=== PATIENT | female | born 1940 | race African-American/Black ===

== ENCOUNTER 2017-12-26 16:25 | Emergency (ER) | payer MEDICARE, OTHER ==
[~2017-12-26] VITALS: Ht 162.6 cm; Wt 38.0 kg
[2017-12-26] MEDS ORDERED: ipratropium/albuterol 3ml nebule NEB ONE (17:30)
[2017-12-26 18:00] LABS: BASOPHILS % (AUTO) 0 % (0-1); EOSINOPHILS # (AUTO) 0.1 X10'3 (0-0.9); EOSINOPHILS % (AUTO) 0.8 % (0-6); HEMATOCRIT 22.6 % (35.0-45.0); HEMOGLOBIN 7.2 g/dl (12.0-16.0); LYMPHOCYTES # (AUTO) 1.5 X10'3 (1.1-4.8); LYMPHOCYTES % (AUTO) 15.5 % (21-51); MEAN CORPUSCULAR HGB CONC 31.9 % (33.0-36.5); MEAN CORPUSCULAR VOLUME 75.4 FL (78-98); MEAN PLATELET VOLUME 6.7 FL (7.4-10.4); MONOCYTES # (AUTO) 0.1 X10'3 (0-0.9); MONOCYTES % (AUTO) 0.8 % (2-12); NEUTROPHILS # (AUTO) 8.3 X10'3 (1.8-7.7); NEUTROPHILS % (AUTO) 82.9 % (42-75); PLATELET COUNT 481 X10'3 (140-440); RED CELL DISTRIBUTION WIDTH 17.9 % (11.5-14.5)
[2017-12-26 18:25] LABS: ALANINE AMINOTRANSFERASE 10 U/L (12-78); ALBUMIN 1.2 G/DL (3.4-5.0); ALBUMIN/GLOBULIN RATIO 0.2 (1.1-1.5); ALKALINE PHOSPHATASE 78 IU/L (46-116); ANION GAP 6 (8-16); ANISOCYTOSIS 2+; ASPARTATE AMINO TRANSFERASE 18 U/L (10-37); BILIRUBIN,TOTAL 0.2 MG/DL (0.1-1.0); BLOOD UREA NITROGEN 24 MG/DL (7-18); BUN/CREATININE RATIO 22.6 (6.6-38.0); CALCIUM 8.9 MG/DL (8.5-10.1); CHLORIDE 102 MMOL/L (99-107); CREATININE 1.06 MG/DL (0.40-0.90); MICROCYTOSIS 2+; PLATELET ESTIMATE INCREASED; POTASSIUM 4.3 MMOL/L (3.5-5.1); SODIUM 136 MMOL/L (135-145); TOTAL CARBON DIOXIDE 28.1 MMOL/L (24-32); TOTAL CELLS COUNTED 100; TOTAL PROTEIN 8.7 G/DL (6.4-8.2); eGFR 50 ML/MIN
[2017-12-26 18:26] LABS: POIKILOCYTOSIS FEW; POLYCHROMASIA 1+; TOXIC GRANULATION 2+
[2017-12-26 18:29] LABS: GLUCOSE 92 MG/DL (70-104)
[2017-12-26] MEDS ORDERED: iohexol 300mg/ml 100ml inj. ONE (18:38)
[2017-12-26 19:00] VITALS: BP 92/68
== END 2017-12-26 20:55 | disposition left against medical advice (07) ==
LOC: ER 16:26
DX: R13.10 Dysphagia, unspecified (principal); D50.9 Iron deficiency anemia, unspecified; N28.9 Disorder of kidney and ureter, unspecified; R59.1 Generalized enlarged lymph nodes; K20.9 Esophagitis, unspecified; E05.90 Thyrotoxicosis, unspecified without thyrotoxic crisis or storm; J44.9 Chronic obstructive pulmonary disease, unspecified
CPT/HCPCS: 36415; 71045; 71260; 80053; 83880; 84439; 84443; 84484; 85025; 94640; 94760; 99285; Q9967

== ENCOUNTER 2018-01-05 19:34 | Inpatient (IN) | payer MEDICARE, OTHER ==
[~2018-01-05] VITALS: Ht 160 cm; Wt 38.6 kg
[2018-01-05] MEDS ORDERED: NO HOME MEDS (20:27)
[2018-01-05 20:36] LABS: BASOPHILS # (AUTO) 0.1 X10'3 (0-0.2); BASOPHILS % (AUTO) 0.6 % (0-1); EOSINOPHILS # (AUTO) 0.1 X10'3 (0-0.9); EOSINOPHILS % (AUTO) 1.2 % (0-6); LYMPHOCYTES # (AUTO) 2.1 X10'3 (1.1-4.8); LYMPHOCYTES % (AUTO) 19.5 % (21-51); MEAN CORPUSCULAR HEMOGLOBIN 24.4 PG (27.0-31.0); MEAN CORPUSCULAR HGB CONC 32.4 % (33.0-36.5); MEAN CORPUSCULAR VOLUME 75.4 FL (78-98); MEAN PLATELET VOLUME 6.5 FL (7.4-10.4); MONOCYTES # (AUTO) 0.6 X10'3 (0-0.9); MONOCYTES % (AUTO) 5.9 % (2-12); NEUTROPHILS # (AUTO) 7.9 X10'3 (1.8-7.7); NEUTROPHILS % (AUTO) 72.8 % (42-75); PLATELET COUNT 473 X10'3 (140-440); RED BLOOD COUNT 1.89 X10'6 (4.20-5.60); RED CELL DISTRIBUTION WIDTH 17.8 % (11.5-14.5); WHITE BLOOD COUNT 10.9 X10'3 (4.5-11.0)
[2018-01-05 20:46] LABS: HEMATOCRIT 14.3 % (35.0-45.0); HEMOGLOBIN 4.6 g/dl (12.0-16.0); INR 1.1 INR; PARTIAL THROMBOPLASTIN TIME 25 SECONDS (22-32)
[2018-01-05 20:50] LABS: ALANINE AMINOTRANSFERASE 10 U/L (12-78); ALBUMIN 1.3 G/DL (3.4-5.0); ALBUMIN/GLOBULIN RATIO 0.2 (1.1-1.5); ALKALINE PHOSPHATASE 70 IU/L (46-116); ANION GAP 6 (8-16); ASPARTATE AMINO TRANSFERASE 21 U/L (10-37); BILIRUBIN,TOTAL 0.2 MG/DL (0.1-1.0); BLOOD UREA NITROGEN 23 MG/DL (7-18); BUN/CREATININE RATIO 21.1 (6.6-38.0); CALCIUM 8.9 MG/DL (8.5-10.1); CHLORIDE 103 MMOL/L (99-107); CREATININE 1.09 MG/DL (0.40-0.90); POTASSIUM 4.3 MMOL/L (3.5-5.1); SODIUM 137 MMOL/L (135-145); TOTAL CARBON DIOXIDE 28.1 MMOL/L (24-32); TOTAL PROTEIN 8.9 G/DL (6.4-8.2); eGFR 59 ML/MIN
[2018-01-05 20:53] LABS: GLUCOSE 109 MG/DL (70-104)
[2018-01-05 21:44] LABS: ANISOCYTOSIS 2+; PLATELET ESTIMATE INCREASED; TOTAL CELLS COUNTED 100
[2018-01-05 21:45] LABS: POLYCHROMASIA FEW; ROULEAUX 2+; TOXIC GRANULATION 2+
[2018-01-05 21:46] LABS: MICROCYTOSIS 1+
[2018-01-05 21:47] LABS: HYPOCHROMASIA 1+
[2018-01-05] MEDS ORDERED: magnesium 4gm in 100ml NS 100 ML IV PRN (22:15)
[2018-01-05] MEDS ORDERED: ondansetron/PF 4mg/2ml inj IV PRN (22:15)
[2018-01-05] MEDS ORDERED: magnesium hydroxide 30ml (MOM) UD suspension PO PRN (22:15)
[2018-01-05] MEDS ORDERED: HYDROcodone/acetaminophen 5mg/325mg tablet PO PRN (22:15)
[2018-01-05] MEDS ORDERED: acetaminophen 325mg tablet PO PRN (22:15)
[2018-01-05] MEDS ORDERED: magnesium 2GM in 50ml NS 50 ML IV PRN (22:15)
[2018-01-05] MEDS ORDERED: mag hydrox/Alum hydrox/simeth 30ml oral suspension PO PRN (22:15)
[2018-01-05] MEDS ORDERED: potassium Cl 20 mEq SR tablet PO PRN ×2 (22:15)
[2018-01-05] MEDS ORDERED: potassium Cl 40MEQ/NS 500ml 500 ML IV PRN ×2 (22:15)
[2018-01-05] MEDS: normal saline 1000ml 1,000 ML IV SCH (22:46)
[2018-01-06] VITALS (18 sets, daily range): BP systolic 86–119; BP diastolic 44–64
[2018-01-06] MEDS ORDERED: pantoprazole 40MG/NS 100ML BAG 100 ML IV SCH (06:00)
[2018-01-06] MEDS: K and/or MAG REPLACEMENT MC SCH (08:00)
[2018-01-06] MEDS ORDERED: pantoprazole IV 80 MG in normal saline 100ml IV soln 100 ML IV SCH (08:00)
[2018-01-06 09:02] LABS: BASOPHILS % (AUTO) 0.5 % (0-1); EOSINOPHILS # (AUTO) 0.1 X10'3 (0-0.9); EOSINOPHILS % (AUTO) 1.5 % (0-6); HEMOGLOBIN 9.8 g/dl (12.0-16.0); LYMPHOCYTES % (AUTO) 28.3 % (21-51); MEAN CORPUSCULAR HEMOGLOBIN 25.2 PG (27.0-31.0); MEAN CORPUSCULAR HGB CONC 32.7 % (33.0-36.5); MEAN CORPUSCULAR VOLUME 76.8 FL (78-98); MEAN PLATELET VOLUME 6.6 FL (7.4-10.4); MONOCYTES # (AUTO) 0.6 X10'3 (0-0.9); NEUTROPHILS # (AUTO) 4.4 X10'3 (1.8-7.7); NEUTROPHILS % (AUTO) 61.7 % (42-75); PLATELET COUNT 352 X10'3 (140-440); RED CELL DISTRIBUTION WIDTH 17.9 % (11.5-14.5); WHITE BLOOD COUNT 7.2 X10'3 (4.5-11.0)
[2018-01-06 09:12] LABS: ALANINE AMINOTRANSFERASE 11 U/L (12-78); ALBUMIN 1.2 G/DL (3.4-5.0); ALBUMIN/GLOBULIN RATIO 0.2 (1.1-1.5); ALKALINE PHOSPHATASE 67 IU/L (46-116); ANION GAP 7 (8-16); ASPARTATE AMINO TRANSFERASE 21 U/L (10-37); BILIRUBIN,TOTAL 0.6 MG/DL (0.1-1.0); BLOOD UREA NITROGEN 20 MG/DL (7-18); BUN/CREATININE RATIO 21.7 (6.6-38.0); CALCIUM 8.8 MG/DL (8.5-10.1); CHLORIDE 104 MMOL/L (99-107); CREATININE 0.92 MG/DL (0.40-0.90); GLUCOSE 79 MG/DL (70-104); POTASSIUM 4.3 MMOL/L (3.5-5.1); SODIUM 139 MMOL/L (135-145); TOTAL CARBON DIOXIDE 28.5 MMOL/L (24-32); TOTAL PROTEIN 8.4 G/DL (6.4-8.2); eGFR 71 ML/MIN
[2018-01-06] MEDS ORDERED: LIDOcaine Viscous 15ml cup ONE (15:26)
[2018-01-06] MEDS ORDERED: MIDAZolam 5mg/5ml vial ONE (15:26)
[2018-01-06] MEDS ORDERED: fentaNYL/PF 50MCG/1 ML 2ML syringe ONE (15:26)
[2018-01-06] MEDS: normal saline 1000ml 1,000 ML IV SCH (15:27)
[2018-01-06] MEDS ORDERED: normal saline 1000ml 1,000 ML IV SCH (15:28)
[2018-01-06] MEDS ORDERED: simethicone 40mg/0.6ml oral drops 30ml MC ONE (15:30)
[2018-01-06] MEDS ORDERED: LIDOcaine Viscous 15ml cup PO ONE (15:30)
[2018-01-06] MEDS ORDERED: MIDAZolam 5mg/5ml vial IV PRN (15:30)
[2018-01-06] MEDS ORDERED: fentaNYL/PF 50MCG/1 ML 2ML syringe IV PRN (15:30)
[2018-01-06] MEDS: pantoprazole 40MG/NS 100ML BAG 100 ML IV SCH (16:00)
[2018-01-06] MEDS: sucralfate 1gm/10ml UD suspension PO SCH (21:15)
[2018-01-07] MEDS: pantoprazole 40MG/NS 100ML BAG 100 ML IV SCH ×2 (01:00→05:54)
[2018-01-07 03:00] VITALS: BP 120/57
[2018-01-07 06:13] LABS: ALANINE AMINOTRANSFERASE 11 U/L (12-78); ALBUMIN 1.1 G/DL (3.4-5.0); ALBUMIN/GLOBULIN RATIO 0.2 (1.1-1.5); ALKALINE PHOSPHATASE 65 IU/L (46-116); ANION GAP 6 (8-16); ASPARTATE AMINO TRANSFERASE 19 U/L (10-37); BILIRUBIN,TOTAL 0.4 MG/DL (0.1-1.0); BLOOD UREA NITROGEN 19 MG/DL (7-18); BUN/CREATININE RATIO 21.6 (6.6-38.0); CHLORIDE 105 MMOL/L (99-107); CREATININE 0.88 MG/DL (0.40-0.90); GLUCOSE 64 MG/DL (70-104); MAGNESIUM 1.8 MG/DL (1.5-2.4); POTASSIUM 4.2 MMOL/L (3.5-5.1); SODIUM 138 MMOL/L (135-145); TOTAL CARBON DIOXIDE 27.2 MMOL/L (24-32); eGFR 75 ML/MIN
[2018-01-07 06:35] VITALS: BP 102/59
[2018-01-07 07:11] LABS: BASOPHILS % (AUTO) 0.1 % (0-1); HEMATOCRIT 36.5 % (35.0-45.0); HEMOGLOBIN 11.7 g/dl (12.0-16.0); LYMPHOCYTES # (AUTO) 0.4 X10'3 (1.1-4.8); LYMPHOCYTES % (AUTO) 13.9 % (21-51); MEAN CORPUSCULAR HEMOGLOBIN 25.1 PG (27.0-31.0); MEAN CORPUSCULAR HGB CONC 32.1 % (33.0-36.5); MEAN CORPUSCULAR VOLUME 78.1 FL (78-98); MONOCYTES # (AUTO) 0.2 X10'3 (0-0.9); MONOCYTES % (AUTO) 8.2 % (2-12); NEUTROPHILS # (AUTO) 2.4 X10'3 (1.8-7.7); NEUTROPHILS % (AUTO) 76.8 % (42-75); PLATELET COUNT 268 X10'3 (140-440); RED BLOOD COUNT 4.68 X10'6 (4.20-5.60); RED CELL DISTRIBUTION WIDTH 17.5 % (11.5-14.5)
[2018-01-07] MEDS: K and/or MAG REPLACEMENT MC SCH (08:00)
[2018-01-07] MEDS: sucralfate 1gm/10ml UD suspension PO SCH ×4 (09:08→21:32)
[2018-01-07 11:00] VITALS: BP_SYST 102; BP_SYST 111; BP_SYST 85; BP_DIAS 45; BP_DIAS 59; BP_DIAS 61
[2018-01-07 11:10] LABS: WHITE BLOOD COUNT 5.9 X10'3 (4.5-11.0)
[2018-01-07 11:15] LABS: TOTAL CELLS COUNTED 100
[2018-01-07 11:16] LABS: PLATELET ESTIMATE NORMAL; TOXIC GRANULATION 1+; TOXIC VACUOLATION 1+
[2018-01-07 11:17] LABS: ANISOCYTOSIS 1+; BURR CELLS 1+; SCHISTOCYTES FEW
[2018-01-07 11:18] LABS: ELLIPTOCYTES FEW
[2018-01-07 15:00] VITALS: BP 95/59
[2018-01-07 19:00] VITALS: BP 120/75
[2018-01-07] MEDS: pantoprazole 40mg Tablet.DR PO SCH (21:32)
[2018-01-07 23:00] VITALS: BP 104/53
[2018-01-08 03:00] VITALS: BP 107/61
[2018-01-08 05:59] LABS: ALANINE AMINOTRANSFERASE 6 U/L (12-78); ALBUMIN 1.1 G/DL (3.4-5.0); ALBUMIN/GLOBULIN RATIO 0.2 (1.1-1.5); ALKALINE PHOSPHATASE 61 IU/L (46-116); ANION GAP 3 (8-16); ASPARTATE AMINO TRANSFERASE 18 U/L (10-37); BILIRUBIN,TOTAL 0.3 MG/DL (0.1-1.0); BLOOD UREA NITROGEN 17 MG/DL (7-18); BUN/CREATININE RATIO 18.1 (6.6-38.0); CALCIUM 8.5 MG/DL (8.5-10.1); CHLORIDE 105 MMOL/L (99-107); CREATININE 0.94 MG/DL (0.40-0.90); MAGNESIUM 1.8 MG/DL (1.5-2.4); POTASSIUM 3.6 MMOL/L (3.5-5.1); SODIUM 138 MMOL/L (135-145); TOTAL CARBON DIOXIDE 30.2 MMOL/L (24-32); eGFR 70 ML/MIN
[2018-01-08 06:00] LABS: GLUCOSE 81 MG/DL (70-104)
[2018-01-08 06:47] LABS: BASOPHILS % (AUTO) 0.8 % (0-1); EOSINOPHILS # (AUTO) 0.1 X10'3 (0-0.9); EOSINOPHILS % (AUTO) 1.8 % (0-6); HEMATOCRIT 32.8 % (35.0-45.0); HEMOGLOBIN 10.8 g/dl (12.0-16.0); LYMPHOCYTES # (AUTO) 1.7 X10'3 (1.1-4.8); LYMPHOCYTES % (AUTO) 30.9 % (21-51); MEAN CORPUSCULAR HEMOGLOBIN 26.1 PG (27.0-31.0); MEAN CORPUSCULAR VOLUME 79.3 FL (78-98); MEAN PLATELET VOLUME 6.6 FL (7.4-10.4); MONOCYTES # (AUTO) 0.7 X10'3 (0-0.9); MONOCYTES % (AUTO) 11.7 % (2-12); NEUTROPHILS # (AUTO) 3.1 X10'3 (1.8-7.7); NEUTROPHILS % (AUTO) 54.8 % (42-75); PLATELET COUNT 262 X10'3 (140-440); RED BLOOD COUNT 4.13 X10'6 (4.20-5.60); RED CELL DISTRIBUTION WIDTH 18.9 % (11.5-14.5); WHITE BLOOD COUNT 5.6 X10'3 (4.5-11.0)
[2018-01-08 07:07] VITALS: BP 107/53
[2018-01-08] MEDS: pantoprazole 40mg Tablet.DR PO SCH ×2 (07:47→20:47)
[2018-01-08] MEDS: sucralfate 1gm/10ml UD suspension PO SCH ×4 (07:47→20:47)
[2018-01-08] MEDS: K and/or MAG REPLACEMENT MC SCH (08:00)
[2018-01-08 08:46] LABS: TOTAL CELLS COUNTED 100; TOXIC GRANULATION 2+
[2018-01-08 08:47] LABS: ANISOCYTOSIS 2+; ELLIPTOCYTES FEW; PLATELET ESTIMATE NORMAL; SCHISTOCYTES FEW; TOXIC VACUOLATION FEW
[2018-01-08 11:00] VITALS: BP 93/50
[2018-01-08 15:00] VITALS: BP 114/60
[2018-01-08 18:00] VITALS: BP 110/72
[2018-01-08 22:00] VITALS: BP 98/54
[2018-01-09 02:00] VITALS: BP 99/56
[2018-01-09 06:00] VITALS: BP 96/62
[2018-01-09 06:47] LABS: BASOPHILS % (AUTO) 0.5 % (0-1); EOSINOPHILS # (AUTO) 0.1 X10'3 (0-0.9); EOSINOPHILS % (AUTO) 2.5 % (0-6); HEMATOCRIT 31.5 % (35.0-45.0); HEMOGLOBIN 10.6 g/dl (12.0-16.0); LYMPHOCYTES # (AUTO) 1.8 X10'3 (1.1-4.8); LYMPHOCYTES % (AUTO) 31.1 % (21-51); MEAN CORPUSCULAR HEMOGLOBIN 26.4 PG (27.0-31.0); MEAN CORPUSCULAR HGB CONC 33.7 % (33.0-36.5); MEAN CORPUSCULAR VOLUME 78.3 FL (78-98); MEAN PLATELET VOLUME 6.6 FL (7.4-10.4); MONOCYTES # (AUTO) 0.6 X10'3 (0-0.9); MONOCYTES % (AUTO) 9.3 % (2-12); NEUTROPHILS # (AUTO) 3.4 X10'3 (1.8-7.7); NEUTROPHILS % (AUTO) 56.6 % (42-75); PLATELET COUNT 263 X10'3 (140-440); RED BLOOD COUNT 4.02 X10'6 (4.20-5.60); RED CELL DISTRIBUTION WIDTH 18.4 % (11.5-14.5); WHITE BLOOD COUNT 5.9 X10'3 (4.5-11.0)
[2018-01-09 07:05] LABS: ALANINE AMINOTRANSFERASE 10 U/L (12-78); ALBUMIN 1.1 G/DL (3.4-5.0); ALBUMIN/GLOBULIN RATIO 0.2 (1.1-1.5); ALKALINE PHOSPHATASE 58 IU/L (46-116); ANION GAP 4 (8-16); ASPARTATE AMINO TRANSFERASE 16 U/L (10-37); BILIRUBIN,TOTAL 0.2 MG/DL (0.1-1.0); BLOOD UREA NITROGEN 13 MG/DL (7-18); BUN/CREATININE RATIO 13.8 (6.6-38.0); CALCIUM 8.6 MG/DL (8.5-10.1); CHLORIDE 103 MMOL/L (99-107); CREATININE 0.94 MG/DL (0.40-0.90); GLUCOSE 98 MG/DL (70-104); MAGNESIUM 1.8 MG/DL (1.5-2.4); POTASSIUM 3.5 MMOL/L (3.5-5.1); SODIUM 137 MMOL/L (135-145); TOTAL CARBON DIOXIDE 30.4 MMOL/L (24-32); TOTAL PROTEIN 7.7 G/DL (6.4-8.2); eGFR 70 ML/MIN
[2018-01-09] MEDS: pantoprazole 40mg Tablet.DR PO SCH ×2 (07:41→20:08)
[2018-01-09] MEDS: sucralfate 1gm/10ml UD suspension PO SCH ×4 (07:41→20:08)
[2018-01-09] MEDS: K and/or MAG REPLACEMENT MC SCH (07:42)
[2018-01-09] MEDS: ipratropium/albuterol 3ml nebule NEB PRN (10:25)
[2018-01-09 11:00] VITALS: BP 98/54
[2018-01-09 15:00] VITALS: BP 101/57
[2018-01-09 18:00] VITALS: BP 95/58
[2018-01-09 22:00] VITALS: BP 95/53
[2018-01-10 02:00] VITALS: BP 85/58
[2018-01-10 06:00] VITALS: BP 86/51
[2018-01-10 06:34] LABS: ALANINE AMINOTRANSFERASE 10 U/L (12-78); ALBUMIN 1.1 G/DL (3.4-5.0); ALBUMIN/GLOBULIN RATIO 0.2 (1.1-1.5); ALKALINE PHOSPHATASE 58 IU/L (46-116); ANION GAP 3 (8-16); ASPARTATE AMINO TRANSFERASE 16 U/L (10-37); BILIRUBIN,TOTAL 0.2 MG/DL (0.1-1.0); BLOOD UREA NITROGEN 16 MG/DL (7-18); BUN/CREATININE RATIO 18.2 (6.6-38.0); CALCIUM 8.6 MG/DL (8.5-10.1); CHLORIDE 103 MMOL/L (99-107); CREATININE 0.88 MG/DL (0.40-0.90); MAGNESIUM 1.9 MG/DL (1.5-2.4); SODIUM 139 MMOL/L (135-145); TOTAL CARBON DIOXIDE 33.4 MMOL/L (24-32); TOTAL PROTEIN 7.8 G/DL (6.4-8.2); eGFR 75 ML/MIN
[2018-01-10 06:39] LABS: GLUCOSE 77 MG/DL (70-104)
[2018-01-10] MEDS: sucralfate 1gm/10ml UD suspension PO SCH ×4 (07:00→20:09)
[2018-01-10 07:07] LABS: BASOPHILS % (AUTO) 0.6 % (0-1); EOSINOPHILS # (AUTO) 0.2 X10'3 (0-0.9); EOSINOPHILS % (AUTO) 2.6 % (0-6); HEMATOCRIT 32.6 % (35.0-45.0); HEMOGLOBIN 10.6 g/dl (12.0-16.0); LYMPHOCYTES # (AUTO) 2.2 X10'3 (1.1-4.8); LYMPHOCYTES % (AUTO) 35.7 % (21-51); MEAN CORPUSCULAR HGB CONC 32.7 % (33.0-36.5); MEAN CORPUSCULAR VOLUME 79.6 FL (78-98); MEAN PLATELET VOLUME 6.7 FL (7.4-10.4); MONOCYTES # (AUTO) 0.6 X10'3 (0-0.9); MONOCYTES % (AUTO) 9.3 % (2-12); NEUTROPHILS # (AUTO) 3.3 X10'3 (1.8-7.7); NEUTROPHILS % (AUTO) 51.8 % (42-75); PLATELET COUNT 266 X10'3 (140-440); RED BLOOD COUNT 4.09 X10'6 (4.20-5.60); WHITE BLOOD COUNT 6.3 X10'3 (4.5-11.0)
[2018-01-10] MEDS: pantoprazole 40mg Tablet.DR PO SCH ×2 (08:00→20:09)
[2018-01-10] MEDS: K and/or MAG REPLACEMENT MC SCH (08:00)
[2018-01-10 11:00] VITALS: BP 102/62
[2018-01-10 15:00] VITALS: BP 102/55
[2018-01-10 18:00] VITALS: BP 96/51
[2018-01-10 22:00] VITALS: BP 97/55
[2018-01-11 02:00] VITALS: BP 92/55
[2018-01-11 06:00] VITALS: BP 92/52
[2018-01-11] MEDS: K and/or MAG REPLACEMENT MC SCH (08:00)
[2018-01-11] MEDS: pantoprazole 40mg Tablet.DR PO SCH ×2 (08:33→20:32)
[2018-01-11] MEDS: sucralfate 1gm/10ml UD suspension PO SCH ×5 (08:33→20:32)
[2018-01-11 11:00] VITALS: BP 104/57
[2018-01-11] MEDS: ipratropium/albuterol 3ml nebule NEB PRN (13:44)
[2018-01-11 19:00] VITALS: BP 101/53
[2018-01-11 23:00] VITALS: BP 112/54
[2018-01-12 03:00] VITALS: BP 101/60
[2018-01-12 07:00] VITALS: BP 97/52
[2018-01-12] MEDS: LACTOSE-FREE FOOD 237ML (BOOST) PO SCH ×3 (08:00→18:49)
[2018-01-12] MEDS: K and/or MAG REPLACEMENT MC SCH (08:00)
[2018-01-12] MEDS: pantoprazole 40mg Tablet.DR PO SCH ×2 (08:30→22:21)
[2018-01-12] MEDS: sucralfate 1gm/10ml UD suspension PO SCH ×4 (08:30→22:20)
[2018-01-12 11:00] VITALS: BP 85/48
[2018-01-12 15:58] VITALS: BP 107/62
[2018-01-12 19:00] VITALS: BP 113/60
[2018-01-12 23:00] VITALS: BP 73/51
[2018-01-13] VITALS (7 sets, daily range): BP systolic 88–118; BP diastolic 50–63
[2018-01-13] LABS: ALBUMIN 1.1 G/DL (3.4-5.0); ANION GAP 3 (8-16); BLOOD UREA NITROGEN 17 MG/DL (7-18); BUN/CREATININE RATIO 15.6 (6.6-38.0); CALCIUM 8.5 MG/DL (8.5-10.1); CHLORIDE 102 MMOL/L (99-107); CREATININE 1.09 MG/DL (0.40-0.90); POTASSIUM 3.5 MMOL/L (3.5-5.1); SODIUM 136 MMOL/L (135-145); TOTAL CARBON DIOXIDE 30.9 MMOL/L (24-32); eGFR 59 ML/MIN
[2018-01-13 00:02] LABS: GLUCOSE 113 MG/DL (70-104)
[2018-01-13 00:15] LABS: BASOPHILS % (AUTO) 0.4 % (0-1); EOSINOPHILS # (AUTO) 0.1 X10'3 (0-0.9); EOSINOPHILS % (AUTO) 1.9 % (0-6); HEMATOCRIT 30.6 % (35.0-45.0); HEMOGLOBIN 10.1 g/dl (12.0-16.0); LYMPHOCYTES # (AUTO) 1.8 X10'3 (1.1-4.8); MEAN CORPUSCULAR HEMOGLOBIN 26.1 PG (27.0-31.0); MEAN CORPUSCULAR HGB CONC 33.2 % (33.0-36.5); MEAN CORPUSCULAR VOLUME 78.7 FL (78-98); MEAN PLATELET VOLUME 6.6 FL (7.4-10.4); MONOCYTES # (AUTO) 0.8 X10'3 (0-0.9); MONOCYTES % (AUTO) 10.9 % (2-12); NEUTROPHILS # (AUTO) 4.9 X10'3 (1.8-7.7); NEUTROPHILS % (AUTO) 63.8 % (42-75); PLATELET COUNT 287 X10'3 (140-440); RED BLOOD COUNT 3.89 X10'6 (4.20-5.60); RED CELL DISTRIBUTION WIDTH 18.1 % (11.5-14.5); WHITE BLOOD COUNT 7.8 X10'3 (4.5-11.0)
[2018-01-13] MEDS: sucralfate 1gm/10ml UD suspension PO SCH ×4 (07:32→21:00)
[2018-01-13] MEDS: pantoprazole 40mg Tablet.DR PO SCH ×2 (07:32→19:33)
[2018-01-13] MEDS: LACTOSE-FREE FOOD 237ML (BOOST) PO SCH ×3 (07:33→18:01)
[2018-01-13] MEDS: K and/or MAG REPLACEMENT MC SCH (08:00)
[2018-01-13] MEDS: levoFLOXACIN-Levaquin 750MG/D5 150 ML IV SCH (16:37)
[2018-01-14 03:00] VITALS: BP 107/57
[2018-01-14 05:30] VITALS: BP 109/57
[2018-01-14] MEDS: pantoprazole 40mg Tablet.DR PO SCH ×2 (07:34→20:53)
[2018-01-14] MEDS: sucralfate 1gm/10ml UD suspension PO SCH ×4 (07:34→20:52)
[2018-01-14] MEDS: LACTOSE-FREE FOOD 237ML (BOOST) PO SCH ×3 (07:36→18:00)
[2018-01-14] MEDS: K and/or MAG REPLACEMENT MC SCH (07:37)
[2018-01-14 11:00] VITALS: BP 89/54
[2018-01-14 15:00] VITALS: BP 97/52
[2018-01-14 18:00] VITALS: BP 118/62
[2018-01-14] MEDS: lactobacillus rhamnosus 10,000 MMU CELLS/CAPSULE PO SCH (20:53)
[2018-01-14 22:00] VITALS: BP 105/57
[2018-01-15 02:00] VITALS: BP 90/54
[2018-01-15 07:04] LABS: ALANINE AMINOTRANSFERASE 8 U/L (12-78); ALBUMIN 1.1 G/DL (3.4-5.0); ALBUMIN/GLOBULIN RATIO 0.2 (1.1-1.5); ALKALINE PHOSPHATASE 73 IU/L (46-116); ANION GAP 3 (8-16); ASPARTATE AMINO TRANSFERASE 19 U/L (10-37); BILIRUBIN,TOTAL 0.3 MG/DL (0.1-1.0); BLOOD UREA NITROGEN 17 MG/DL (7-18); BUN/CREATININE RATIO 18.7 (6.6-38.0); CALCIUM 9.1 MG/DL (8.5-10.1); CHLORIDE 101 MMOL/L (99-107); CREATININE 0.91 MG/DL (0.40-0.90); POTASSIUM 4.2 MMOL/L (3.5-5.1); SODIUM 136 MMOL/L (135-145); TOTAL CARBON DIOXIDE 32.3 MMOL/L (24-32); TOTAL PROTEIN 8.4 G/DL (6.4-8.2); eGFR 72 ML/MIN
[2018-01-15 07:07] LABS: GLUCOSE 82 MG/DL (70-104)
[2018-01-15 07:10] LABS: BASOPHILS % (AUTO) 0.5 % (0-1); EOSINOPHILS # (AUTO) 0.1 X10'3 (0-0.9); EOSINOPHILS % (AUTO) 1.5 % (0-6); HEMATOCRIT 34.6 % (35.0-45.0); HEMOGLOBIN 11.5 g/dl (12.0-16.0); LYMPHOCYTES # (AUTO) 1.6 X10'3 (1.1-4.8); LYMPHOCYTES % (AUTO) 21.3 % (21-51); MEAN CORPUSCULAR HEMOGLOBIN 26.1 PG (27.0-31.0); MEAN CORPUSCULAR HGB CONC 33.1 % (33.0-36.5); MEAN CORPUSCULAR VOLUME 78.9 FL (78-98); MEAN PLATELET VOLUME 6.9 FL (7.4-10.4); MONOCYTES # (AUTO) 0.6 X10'3 (0-0.9); MONOCYTES % (AUTO) 7.6 % (2-12); NEUTROPHILS # (AUTO) 5.1 X10'3 (1.8-7.7); NEUTROPHILS % (AUTO) 69.1 % (42-75); PLATELET COUNT 311 X10'3 (140-440); RED BLOOD COUNT 4.39 X10'6 (4.20-5.60); RED CELL DISTRIBUTION WIDTH 17.9 % (11.5-14.5); WHITE BLOOD COUNT 7.3 X10'3 (4.5-11.0)
[2018-01-15] MEDS: pantoprazole 40mg Tablet.DR PO SCH (07:34)
[2018-01-15] MEDS: levoFLOXACIN-Levaquin 750MG/D5 150 ML IV SCH (07:34)
[2018-01-15] MEDS: sucralfate 1gm/10ml UD suspension PO SCH ×2 (07:34→12:00)
[2018-01-15] MEDS: lactobacillus rhamnosus 10,000 MMU CELLS/CAPSULE PO SCH (07:34)
[2018-01-15] MEDS: LACTOSE-FREE FOOD 237ML (BOOST) PO SCH ×2 (07:35→13:32)
[2018-01-15] MEDS: K and/or MAG REPLACEMENT MC SCH (07:47)
[2018-01-15] MEDS ORDERED: ALBU8.5H8 IH (10:20)
[2018-01-15] MEDS ORDERED: LACT1CAP26 PO (10:20)
[2018-01-15] MEDS ORDERED: LEVO750T46 PO (10:20)
[2018-01-15] MEDS ORDERED: PANT40TA4 PO (10:20)
[2018-01-15] MEDS ORDERED: LACT-28 PO (10:20)
[2018-01-15 11:00] VITALS: BP 80/42
== END 2018-01-15 13:40 | disposition home health service (06) | DRG 380 ==
LOC: ER 19:35 → ED HOLD 22:15 → PCU 3S 23:23
PROVIDERS: ADMIT Family Medicine; ATTEND Family Medicine
PROC: 0DB58ZX Excision of Esophagus, Via Natural or Artificial Opening Endoscopic, Diagnostic (ICD-10-PCS; principal; 2018-01-06)
PROC: 30233N1 Transfusion of Nonautologous Red Blood Cells into Peripheral Vein, Percutaneous Approach (ICD-10-PCS; 2018-01-06)
DX: K22.11 Ulcer of esophagus with bleeding (principal); E43 Unspecified severe protein-calorie malnutrition; J13 Pneumonia due to Streptococcus pneumoniae; R04.2 Hemoptysis; M06.9 Rheumatoid arthritis, unspecified; J44.0 Chronic obstructive pulmonary disease with (acute) lower respiratory infection; B47.9 Mycetoma, unspecified; D62 Acute posthemorrhagic anemia; Z68.1 Body mass index [BMI] 19.9 or less, adult; R91.1 Solitary pulmonary nodule; E05.00 Thyrotoxicosis with diffuse goiter without thyrotoxic crisis or storm; K44.9 Diaphragmatic hernia without obstruction or gangrene; E03.9 Hypothyroidism, unspecified; K21.0 Gastro-esophageal reflux disease with esophagitis; K25.9 Gastric ulcer, unspecified as acute or chronic, without hemorrhage or perforation; Z88.1 Allergy status to other antibiotic agents; Z87.11 Personal history of peptic ulcer disease; Z87.891 Personal history of nicotine dependence; Z86.11 Personal history of tuberculosis
CPT/HCPCS: 36415; 43239; 71046; 76536; 80048; 80053; 83605; 83735; 84145; 84484; 85025; 85610; 85730; 86480; 86885; 86922; 87040; 87070; 87077; 87186; 88305; 88312; 93005; 94640; 94760; 97110; 97116; 97162; 99285; A4620; C9113; G0500; J1956; J2250; J3010; J7030; P9016

== ENCOUNTER 2018-04-20 12:28 | Day surgery (SDC) | payer MEDICARE ==
[~2018-04-20] VITALS: Ht 162.6 cm; Wt 38.4 kg
[~2018-04-20 12:28] MED LIST: ALBU8.5H8 IH; LACT-28 PO; LACT1CAP26 PO; PANT40TA4 PO
[2018-04-20] MEDS ORDERED: MIDAZolam 5mg/5ml vial ONE (12:52)
[2018-04-20] MEDS ORDERED: fentaNYL/PF 50MCG/1 ML 2ML syringe ONE (12:52)
[2018-04-20] MEDS ORDERED: LIDOcaine Viscous 15ml cup ONE (12:52)
[2018-04-20] MEDS ORDERED: pantoprazole PO (12:53)
[2018-04-20] MEDS ORDERED: LACT-187 PO (12:59)
[2018-04-20] MEDS ORDERED: ALB0.5UD IH (12:59)
[2018-04-20] MEDS ORDERED: LACT1CAP26 PO (12:59)
[2018-04-20 13:10] VITALS: BP 97/76
[2018-04-20 13:55] VITALS: BP 94/61
[2018-04-20 14:05] VITALS: BP 94/57
[2018-04-20 14:15] VITALS: BP 96/60
[2018-04-20 14:25] VITALS: BP 96/61
== END 2018-04-20 14:40 | disposition home or self-care (01) ==
LOC: GI LAB 12:28
PROVIDERS: ATTEND Internal Medicine Gastroenterology
DX: D62 Acute posthemorrhagic anemia (principal); K20.8 Other esophagitis; K29.70 Gastritis, unspecified, without bleeding; K44.9 Diaphragmatic hernia without obstruction or gangrene; J44.9 Chronic obstructive pulmonary disease, unspecified; M06.9 Rheumatoid arthritis, unspecified; E03.9 Hypothyroidism, unspecified; Z86.11 Personal history of tuberculosis; Z90.710 Acquired absence of both cervix and uterus; Z86.19 Personal history of other infectious and parasitic diseases; Z79.899 Other long term (current) drug therapy; Z87.891 Personal history of nicotine dependence; Z98.890 Other specified postprocedural states
CPT/HCPCS: 43235; G0500; J2250; J3010; J7030; A4620